=== PATIENT | male | born 1950 | race Hispanic/Latino ===

== ENCOUNTER 2018-02-02 16:24 | Emergency (ER) | payer MEDICARE ==
[2018-02-02] MEDS ORDERED: ONDANSETRON ODT 4 MG TAB ONE (16:44)
[2018-02-02 16:50] LABS: BILIRUBIN,URINE Negative (NEGATIVE); COLOR,URINE Dark Yellow (YELLOW); GLUCOSE, URINE (UA) Negative (NEGATIVE); KETONES,URINE Negative (NEGATIVE); LEUKOCYTE ESTERASE ,URINE Small (NEGATIVE); NITRATE,URINE Negative (NEGATIVE); OCCULT BLOOD,URINE Large (NEGATIVE); PROTEIN,URINE POS 2+ (NEGATIVE)
[2018-02-02 16:51] LABS: APPEARANCE,URINE SLIGHTLY CLOUDY (CLEAR)
[2018-02-02 16:51] LABS: BASOPHILS % (AUTO) 0.4 % (0.0-5.0); EOSINOPHILS % (AUTO) 1.7 % (0.0-8.0); HEMATOCRIT 37.9 % (42-54); LYMPHOCYTES % (AUTO) 22.2 % (21.0-51.0); MEAN CORPUSCULAR HEMOGLOBIN 30.8 pg (27.0-33.0); MEAN CORPUSCULAR VOLUME 90.5 fL (79-99); MONOCYTES % (AUTO) 9.5 % (3.0-13.0); NEUTROPHILS % (AUTO) 66.2 % (40.0-77.0); PLATELET COUNT (AUTO) 200 K/uL (130-400); RED BLOOD CELL COUNT(AUTO) 4.19 MIL/uL (4.50-6.20); RED CELL DISTRIBUTION WIDTH 14.1 % (11.0-15.5); WHITE BLOOD COUNT (AUTO) 8.6 K/uL (4.8-10.8)
[2018-02-02] MEDS ORDERED: DICYCLOMINE HCL 10 MG/ML 2ML AMP IM ONE (17:00)
[2018-02-02 17:01] LABS: AMPHET/METH SCREEN,URINE NEGATIVE (NEGATIVE); BARBITURATE SCREEN, URINE NEGATIVE (NEGATIVE); BENZODIAZEPINES SCREEN,URINE NEGATIVE (NEGATIVE); CANNABINOID SCREEN,URINE POSITIVE (NEGATIVE); COCAINE SCREEN,URINE POSITIVE (NEGATIVE); OPIATE SCREEN,URINE NEGATIVE (NEGATIVE); PHENCYCLIDINE SCREEN,URINE NEGATIVE (NEGATIVE)
[2018-02-02 17:02] LABS: BACTERIA,URINE Few /HPF (None Seen)
[2018-02-02 17:03] LABS: COARSE GRANULAR CASTS,URINE 0-2 /LPF (None Seen); MUCUS,URINE Few LPF (None Seen)
[2018-02-02 17:04] LABS: CREATININE 1.8 mg/dL (0.5-1.5); POTASSIUM 4.1 mmol/L (3.5-5.1)
[2018-02-02 17:08] LABS: ALBUMIN 3.5 g/dL (3.5-5.0); BILIRUBIN,TOTAL 0.9 mg/dL (0.2-1.0); TOTAL PROTEIN, SERUM 7.7 g/dL (6.0-8.3)
== END 2018-02-02 22:30 | disposition home or self-care (01) ==
LOC: EDH 16:24
DX: R10.11 Right upper quadrant pain (principal); N28.9 Disorder of kidney and ureter, unspecified; F19.10 Other psychoactive substance abuse, uncomplicated; R74.8 Abnormal levels of other serum enzymes; I10 Essential (primary) hypertension; Z90.49 Acquired absence of other specified parts of digestive tract; Z79.899 Other long term (current) drug therapy
CPT/HCPCS: 36415; 74176; 80053; 80305; 81001; 82550; 83690; 84484; 85025; 93005; 96372; 99285; J0500

== ENCOUNTER 2018-02-08 08:15 | Emergency (ER) | payer MEDICARE ==
[2018-02-08] MEDS ORDERED: KETOROLAC TROMETHAMINE 30MG/ML ONE (10:18)
== END 2018-02-08 11:47 | disposition home or self-care (01) ==
LOC: EDH 08:15
DX: M25.572 Pain in left ankle and joints of left foot (principal); I10 Essential (primary) hypertension; F14.10 Cocaine abuse, uncomplicated; Z90.49 Acquired absence of other specified parts of digestive tract
CPT/HCPCS: 73630; 96372; 99284; J1885

== ENCOUNTER 2018-02-20 14:04 | Emergency (ER) | payer MEDICARE ==
[2018-02-20 15:05] LABS: BASOPHILS % (AUTO) 0.5 % (0.0-5.0); EOSINOPHILS % (AUTO) 1.5 % (0.0-8.0); HEMATOCRIT 39.5 % (42-54); LYMPHOCYTES % (AUTO) 12.8 % (21.0-51.0); MEAN CORPUSCULAR HEMOGLOBIN 30.8 pg (27.0-33.0); MEAN CORPUSCULAR HGB CONC 34.4 g/dL (32.0-36.0); MEAN CORPUSCULAR VOLUME 89.6 fL (79-99); MONOCYTES % (AUTO) 13.9 % (3.0-13.0); NEUTROPHILS % (AUTO) 71.3 % (40.0-77.0); NUCLEATED RED BLOOD CELLS 0.1 % (0.0-0.19); PLATELET COUNT (AUTO) 206 K/uL (130-400); RED BLOOD CELL COUNT(AUTO) 4.41 MIL/uL (4.50-6.20); WHITE BLOOD COUNT (AUTO) 6.7 K/uL (4.8-10.8)
[2018-02-20 15:13] LABS: CREATININE 1.7 mg/dL (0.5-1.5); POTASSIUM 4.4 mmol/L (3.5-5.1)
[2018-02-20 15:17] LABS: ALBUMIN 3.3 g/dL (3.5-5.0); BILIRUBIN,TOTAL 0.6 mg/dL (0.2-1.0); TOTAL PROTEIN, SERUM 7.3 g/dL (6.0-8.3)
[2018-02-20 15:40] LABS: APPEARANCE,URINE Clear (CLEAR); BILIRUBIN,URINE Negative (NEGATIVE); COLOR,URINE Yellow (YELLOW); GLUCOSE, URINE (UA) Negative (NEGATIVE); KETONES,URINE Negative (NEGATIVE); LEUKOCYTE ESTERASE ,URINE Negative (NEGATIVE); NITRATE,URINE Negative (NEGATIVE); OCCULT BLOOD,URINE Moderate (NEGATIVE); PROTEIN,URINE POS 2+ (NEGATIVE)
[2018-02-20 16:10] LABS: BACTERIA,URINE Few /HPF (None Seen); WBC,URINE 0-1 /HPF (0-1)
[2018-02-20 16:11] LABS: MUCUS,URINE Rare LPF (None Seen); SQUAMOUS EPITHELIAL CELL,UR Rare /HPF (0-2)
== END 2018-02-20 17:48 | disposition home or self-care (01) ==
LOC: EDH 14:04
DX: R10.30 Lower abdominal pain, unspecified (principal); I10 Essential (primary) hypertension; Z90.49 Acquired absence of other specified parts of digestive tract
CPT/HCPCS: 36415; 74176; 80053; 81001; 82550; 83690; 84484; 85025; 93005

== ENCOUNTER → 2018-04-05 | Outpatient (CLI) | payer MEDICARE | END | disposition home or self-care (01) | LOC: RAH 09:16 | PROVIDERS: ATTEND Internal Medicine Cardiovascular Disease | DX: I08.1 Rheumatic disorders of both mitral and tricuspid valves (principal) | CPT/HCPCS: 93306 ==

== ENCOUNTER 2018-07-27 16:21 | Inpatient (IN) | payer MEDICARE ==
[~2018-07-27] VITALS: Ht 142.2 cm; Wt 79.9 kg
[2018-07-27 17:02] LABS: BASOPHILS % (AUTO) 0.5 % (0.0-5.0); EOSINOPHILS % (AUTO) 1.1 % (0.0-8.0); HEMATOCRIT 49.1 % (42-54); MEAN CORPUSCULAR HGB CONC 32.4 g/dL (32.0-36.0); MEAN CORPUSCULAR VOLUME 92.5 fL (79-99); MONOCYTES % (AUTO) 13.9 % (3.0-13.0); NEUTROPHILS % (AUTO) 61.5 % (40.0-77.0); NUCLEATED RED BLOOD CELLS 0.1 % (0.0-0.19); PLATELET COUNT (AUTO) 157 K/uL (130-400); RED BLOOD CELL COUNT(AUTO) 5.31 MIL/uL (4.50-6.20)
[2018-07-27 17:17] LABS: INR 1.53 (0.85-1.15); PARTIAL THROMBOPLASTIN TIME 26.4 SEC (26.3-35.5); PROTHROMBIN TIME 15.9 SEC (9.6-11.6)
[2018-07-27 17:37] LABS: POTASSIUM 4.2 mmol/L (3.5-5.1)
[2018-07-27 17:50] LABS: ALBUMIN 3.4 g/dL (3.5-5.0); BILIRUBIN,TOTAL 2.9 mg/dL (0.2-1.0); CREATINE KINASE MB 0.9 ng/mL (0.5-3.6); TOTAL PROTEIN, SERUM 7.4 g/dL (6.0-8.3)
[2018-07-27] MEDS ORDERED: FUROSEMIDE 10 MG/ML 4ML VIAL ONE (21:11)
[2018-07-27] MEDS ORDERED: FUROSEMIDE 10 MG/ML 2ML VIAL ONE (21:11)
[2018-07-28 00:45] VITALS: BP 130/71
[2018-07-28] MEDS ORDERED: CARV12.511 PO (01:14)
[2018-07-28] MEDS ORDERED: FURO20TA4 PO (01:14)
[2018-07-28] MEDS ORDERED: ACET-66 PO (01:14)
[2018-07-28] MEDS ORDERED: BIMA12.5OS OS (01:14)
[2018-07-28] MEDS ORDERED: SPIR25TA6 PO (01:14)
[2018-07-28] MEDS ORDERED: SACU1TAB4 PO (01:14)
[2018-07-28] MEDS ORDERED: IBUP-2353 PO (01:14)
[2018-07-28] MEDS ORDERED: ACETAMINOPHEN 325 MG TAB PO PRN (01:15)
[2018-07-28 04:00] VITALS: BP 143/92
[2018-07-28 08:00] VITALS: BP 143/90
[2018-07-28] MEDS: VALSARTAN PO SCH ×2 (09:00→21:00)
[2018-07-28] MEDS: SACUBITRIL PO SCH ×2 (09:00→21:00)
[2018-07-28 12:00] VITALS: BP 143/88
[2018-07-28] MEDS: FUROSEMIDE 10 MG/ML 4ML VIAL IVP SCH ×2 (12:00→19:21)
[2018-07-28] MEDS: PANTOPRAZOLE SODIUM 40 MG TABLET.DR PO SCH (12:01)
[2018-07-28] MEDS: CARVEDILOL 12.5 MG TABLET PO SCH ×2 (12:01→22:10)
[2018-07-28] MEDS: ENOXAPARIN SODIUM 30 MG/0.3 ML SQ SCH (12:03)
[2018-07-28] MEDS: BIMATOPROST OS SCH (12:05)
[2018-07-28] MEDS ORDERED: POTASSIUM CHLORIDE 10MEQ/100ML 100 ML IV PRN (14:15)
[2018-07-28] MEDS ORDERED: POTASSIUM CHLORIDE 10% ELIXIR 20 MEQ/15 ML UDCUP PO PRN (14:15)
[2018-07-28] MEDS ORDERED: LIDOCAINE HCL-MPF 1% 2ML VIAL IVP PRN (14:15)
[2018-07-28 19:08] VITALS: BP 114/62
[2018-07-28] MEDS: MAGNESIUM 2GM PREMIX 50ML 50 ML IV PRN (19:20)
[2018-07-28 19:32] VITALS: BP 122/65
[2018-07-29 00:32] VITALS: BP 103/49
[2018-07-29 04:33] VITALS: BP 107/61
[2018-07-29 04:40] LABS: BASOPHILS % (AUTO) 1.4 % (0.0-5.0); EOSINOPHILS % (AUTO) 1.7 % (0.0-8.0); HEMATOCRIT 47.8 % (42-54); LYMPHOCYTES % (AUTO) 20.1 % (21.0-51.0); MEAN CORPUSCULAR HEMOGLOBIN 30.4 pg (27.0-33.0); MEAN CORPUSCULAR VOLUME 92.2 fL (79-99); NEUTROPHILS % (AUTO) 66.8 % (40.0-77.0); PLATELET COUNT (AUTO) 194 K/uL (130-400); RED BLOOD CELL COUNT(AUTO) 5.18 MIL/uL (4.50-6.20); RED CELL DISTRIBUTION WIDTH 16.1 % (11.0-15.5); WHITE BLOOD COUNT (AUTO) 7.6 K/uL (4.8-10.8)
[2018-07-29 05:28] LABS: POTASSIUM 2.9 mmol/L (3.5-5.1)
[2018-07-29 05:41] LABS: B-TYPE NATRIURETIC PEPTIDE 855 pg/mL (0-100)
[2018-07-29] MEDS: MAGNESIUM 2GM PREMIX 50ML 50 ML IV PRN (06:12)
[2018-07-29] MEDS: POTASSIUM CHLORIDE 20 MEQ ERTAB PO PRN ×4 (06:15→23:12)
[2018-07-29 08:00] VITALS: BP 118/58
[2018-07-29] MEDS: SACUBITRIL PO SCH ×2 (09:00→20:47)
[2018-07-29] MEDS: VALSARTAN PO SCH ×2 (09:00→20:47)
[2018-07-29] MEDS: FUROSEMIDE 10 MG/ML 4ML VIAL IVP SCH ×2 (09:17→20:45)
[2018-07-29] MEDS: PANTOPRAZOLE SODIUM 40 MG TABLET.DR PO SCH (09:18)
[2018-07-29] MEDS: ENOXAPARIN SODIUM 30 MG/0.3 ML SQ SCH (09:19)
[2018-07-29 12:00] VITALS: BP 132/72
[2018-07-29] MEDS: CARVEDILOL 12.5 MG TABLET PO SCH ×2 (13:57→23:13)
[2018-07-29 16:00] VITALS: BP 105/50
[2018-07-29 20:00] VITALS: BP 96/60
[2018-07-29] MEDS: BIMATOPROST OS SCH (20:47)
[2018-07-30] VITALS: BP 100/64
[2018-07-30] MEDS: POTASSIUM CHLORIDE 20 MEQ ERTAB PO PRN ×3 (01:19→08:47)
[2018-07-30 04:00] VITALS: BP 98/59
[2018-07-30 05:32] LABS: BASOPHILS % (AUTO) 0.8 % (0.0-5.0); HEMATOCRIT 48.1 % (42-54); LYMPHOCYTES % (AUTO) 28.1 % (21.0-51.0); MEAN CORPUSCULAR HEMOGLOBIN 29.8 pg (27.0-33.0); MEAN CORPUSCULAR HGB CONC 32.7 g/dL (32.0-36.0); MEAN CORPUSCULAR VOLUME 91.2 fL (79-99); MONOCYTES % (AUTO) 11.6 % (3.0-13.0); NEUTROPHILS % (AUTO) 57.5 % (40.0-77.0); NUCLEATED RED BLOOD CELLS 0.1 % (0.0-0.19); PLATELET COUNT (AUTO) 170 K/uL (130-400); RED BLOOD CELL COUNT(AUTO) 5.28 MIL/uL (4.50-6.20); RED CELL DISTRIBUTION WIDTH 15.8 % (11.0-15.5); WHITE BLOOD COUNT (AUTO) 6.7 K/uL (4.8-10.8)
[2018-07-30 05:55] LABS: ALBUMIN 2.7 g/dL (3.5-5.0); BILIRUBIN,TOTAL 1.3 mg/dL (0.2-1.0); CREATININE 2.1 mg/dL (0.5-1.5); MAGNESIUM 1.7 mg/dL (1.80-2.40); POTASSIUM 3.3 mmol/L (3.5-5.1); TOTAL PROTEIN, SERUM 6.3 g/dL (6.0-8.3)
[2018-07-30 07:00] VITALS: BP 120/40
[2018-07-30] MEDS ORDERED: MAGNESIUM 2GM PREMIX 50ML 50 ML IV SCH (07:45)
[2018-07-30] MEDS: FUROSEMIDE 10 MG/ML 4ML VIAL IVP SCH (08:47)
[2018-07-30] MEDS: PANTOPRAZOLE SODIUM 40 MG TABLET.DR PO SCH (08:48)
[2018-07-30] MEDS: VALSARTAN PO SCH (09:00)
[2018-07-30] MEDS: SACUBITRIL PO SCH (09:00)
[2018-07-30] MEDS ORDERED: CARVEDILOL 6.25 MG TABLET PO SCH (09:00)
[2018-07-30] MEDS: ENOXAPARIN SODIUM 30 MG/0.3 ML SQ SCH (09:00)
[2018-07-30 11:00] VITALS: BP 123/70
[2018-07-30] MEDS ORDERED: FURO-152 PO (15:27)
[2018-07-30] MEDS ORDERED: CARV6.2579 PO (15:27)
[2018-07-30 16:00] VITALS: BP 98/58
== END 2018-07-30 16:51 | disposition home or self-care (01) | DRG 291 ==
LOC: EDH 16:21 → EDHIP 21:00 → 3DH 07-28 00:54
PROVIDERS: ADMIT Internal Medicine; ATTEND Internal Medicine
DX: I13.0 Hypertensive heart and chronic kidney disease with heart failure and stage 1 through stage 4 chronic kidney disease, or unspecified chronic kidney disease (principal); I50.23 Acute on chronic systolic (congestive) heart failure; N17.9 Acute kidney failure, unspecified; I42.0 Dilated cardiomyopathy; N18.9 Chronic kidney disease, unspecified; R14.0 Abdominal distension (gaseous); E78.5 Hyperlipidemia, unspecified; E83.42 Hypomagnesemia; Z82.49 Family history of ischemic heart disease and other diseases of the circulatory system; Z90.49 Acquired absence of other specified parts of digestive tract; Z28.21 Immunization not carried out because of patient refusal
CPT/HCPCS: 36415; 71046; 80048; 80053; 82550; 82553; 82948; 83735; 83880; 84132; 84484; 85025; 85610; 85730; 93005; J1650; J1940; J3475

== ENCOUNTER → 2018-11-01 | Outpatient (CLI) | payer MEDICARE ==
[~2018-11-01] MED LIST: ACET-66 PO; BIMA12.5OS OS; CARV6.2579 PO; FURO-152 PO; IBUP-2353 PO; SACU1TAB4 PO; SPIR25TA6 PO
== END | disposition home or self-care (01) ==
LOC: SHCH 07:36
PROVIDERS: ATTEND Internal Medicine Cardiovascular Disease
DX: N28.1 Cyst of kidney, acquired (principal); I13.0 Hypertensive heart and chronic kidney disease with heart failure and stage 1 through stage 4 chronic kidney disease, or unspecified chronic kidney disease; N18.3 Chronic kidney disease, stage 3 (moderate); I50.9 Heart failure, unspecified
CPT/HCPCS: 93975

== ENCOUNTER 2019-01-22 15:38 | Emergency (ER) | payer MEDICARE ==
[2019-01-22 16:29] LABS: APPEARANCE,URINE Clear (CLEAR); BILIRUBIN,URINE Negative (NEGATIVE); COLOR,URINE Yellow (YELLOW); GLUCOSE, URINE (UA) Negative (NEGATIVE); KETONES,URINE Negative (NEGATIVE); LEUKOCYTE ESTERASE ,URINE Negative (NEGATIVE); NITRATE,URINE Negative (NEGATIVE); OCCULT BLOOD,URINE Trace (NEGATIVE); PROTEIN,URINE Negative (NEGATIVE); UROBILINOGEN,URINE 0.2 mg/dL (0.2-1.0)
[2019-01-22 16:37] LABS: AMPHET/METH SCREEN,URINE NEGATIVE (NEGATIVE); BARBITURATE SCREEN, URINE NEGATIVE (NEGATIVE); BENZODIAZEPINES SCREEN,URINE NEGATIVE (NEGATIVE); CANNABINOID SCREEN,URINE NEGATIVE (NEGATIVE); COCAINE SCREEN,URINE POSITIVE (NEGATIVE); OPIATE SCREEN,URINE NEGATIVE (NEGATIVE); PHENCYCLIDINE SCREEN,URINE NEGATIVE (NEGATIVE)
[2019-01-22 16:49] LABS: BASOPHILS % (AUTO) 1.1 % (0.0-5.0); EOSINOPHILS % (AUTO) 3.1 % (0.0-8.0); HEMATOCRIT 41.1 % (42-54); LYMPHOCYTES % (AUTO) 24.7 % (21.0-51.0); MEAN CORPUSCULAR HEMOGLOBIN 31.6 pg (27.0-33.0); MEAN CORPUSCULAR HGB CONC 34.1 g/dL (32.0-36.0); MEAN CORPUSCULAR VOLUME 92.7 fL (79-99); NEUTROPHILS % (AUTO) 63.1 % (40.0-77.0); NUCLEATED RED BLOOD CELLS 0.1 % (0.0-0.19); PLATELET COUNT (AUTO) 235 K/uL (130-400); RED BLOOD CELL COUNT(AUTO) 4.44 MIL/uL (4.50-6.20); RED CELL DISTRIBUTION WIDTH 12.9 % (11.0-15.5)
[2019-01-22 17:04] LABS: BACTERIA,URINE Rare /HPF (None Seen); RBC,URINE None Seen /HPF (0-1); SQUAMOUS EPITHELIAL CELL,UR None Seen /HPF (0-2); WBC,URINE 0-1 /HPF (0-1)
[2019-01-22 17:04] LABS: CREATININE 1.4 mg/dL (0.5-1.5); POTASSIUM 4.7 mmol/L (3.5-5.1)
[2019-01-22 17:07] LABS: INR 0.95 (0.85-1.15); PARTIAL THROMBOPLASTIN TIME 23.7 SEC (26.3-35.5)
[2019-01-22 17:12] LABS: ALBUMIN 3.7 g/dL (3.5-5.0); BILIRUBIN,TOTAL 0.3 mg/dL (0.2-1.0); TOTAL PROTEIN, SERUM 7.5 g/dL (6.0-8.3)
[2019-01-22 18:16] LABS: B-TYPE NATRIURETIC PEPTIDE 113 pg/mL (0-100)
[2019-01-22] MEDS ORDERED: HYOSCYAMINE SULFATE 0.125 MG TAB.SUBL SL ONE (18:47)
[2019-01-22] MEDS ORDERED: SIMETHICONE 80 MG TAB.CHEW ONE (18:47)
== END 2019-01-22 18:55 | disposition home or self-care (01) ==
LOC: EDH 15:38
DX: R14.0 Abdominal distension (gaseous) (principal); F14.10 Cocaine abuse, uncomplicated; I10 Essential (primary) hypertension; M54.5 Low back pain; R06.02 Shortness of breath; Z90.49 Acquired absence of other specified parts of digestive tract
CPT/HCPCS: 36415; 71045; 74176; 80053; 80305; 81001; 82150; 82550; 83690; 83880; 84484; 85025; 85610; 85730; 93005

== ENCOUNTER 2019-06-01 13:31 | Emergency (ER) | payer MEDICARE ==
[2019-06-01] MEDS ORDERED: FUROSEMIDE 10 MG/ML 4ML VIAL ONE (14:42)
[2019-06-01 15:01] LABS: CREATININE 1.3 mg/dL (0.5-1.5); POTASSIUM 3.2 mmol/L (3.5-5.1)
== END 2019-06-01 15:50 | disposition home or self-care (01) ==
LOC: EDH 13:31
DX: E87.70 Fluid overload, unspecified (principal); I10 Essential (primary) hypertension; E11.9 Type 2 diabetes mellitus without complications; E78.00 Pure hypercholesterolemia, unspecified; F14.10 Cocaine abuse, uncomplicated
CPT/HCPCS: 36415; 80048; 96374; 99284; J1940

== ENCOUNTER 2019-08-10 12:03 | Inpatient (IN) | payer MEDICARE ==
[~2019-08-10] VITALS: Ht 160 cm; Wt 93.9 kg
[~2019-08-10 12:03] MED LIST changes: +BIMA12.5OS OD; -BIMA12.5OS OS; -IBUP-2353 PO; +IBUP-2784 PO
[2019-08-10 12:45] LABS: BASOPHILS % (AUTO) 0.4 % (0.0-5.0); EOSINOPHILS % (AUTO) 3.2 % (0.0-8.0); HEMATOCRIT 36.7 % (42-54); LYMPHOCYTES % (AUTO) 11.2 % (21.0-51.0); MEAN CORPUSCULAR HEMOGLOBIN 31.1 pg (27.0-33.0); MEAN CORPUSCULAR HGB CONC 33.7 g/dL (32.0-36.0); MEAN CORPUSCULAR VOLUME 92.4 fL (79-99); MONOCYTES % (AUTO) 9.1 % (3.0-13.0); NEUTROPHILS % (AUTO) 76.1 % (40.0-77.0); PLATELET COUNT (AUTO) 162 K/uL (130-400); RED BLOOD CELL COUNT(AUTO) 3.97 MIL/uL (4.50-6.20); RED CELL DISTRIBUTION WIDTH 14.4 % (11.0-15.5); WHITE BLOOD COUNT (AUTO) 8.1 K/uL (4.8-10.8)
[2019-08-10] MEDS ORDERED: IPRATROPIUM/ALBUTEROL SULFATE 3 ML SOLUTION IH ONE (12:46)
[2019-08-10 12:52] LABS: CREATININE 1.6 mg/dL (0.5-1.5); POTASSIUM 3.4 mmol/L (3.5-5.1)
[2019-08-10 12:55] LABS: INR 1.25 (0.85-1.15); PARTIAL THROMBOPLASTIN TIME 25.2 SEC (26.3-35.5)
[2019-08-10 12:58] LABS: ALBUMIN 3.2 g/dL (3.5-5.0); BILIRUBIN,DIRECT 0.2 mg/dL (0.0-0.3); BILIRUBIN,TOTAL 0.8 mg/dL (0.2-1.0); TOTAL PROTEIN, SERUM 6.8 g/dL (6.0-8.3)
[2019-08-10 13:33] LABS: B-TYPE NATRIURETIC PEPTIDE 1150 pg/mL (0-100)
[2019-08-10] MEDS ORDERED: FUROSEMIDE 10 MG/ML 4ML VIAL ONE (13:38)
[2019-08-10] MEDS ORDERED: FUROSEMIDE 10 MG/ML 2ML VIAL IV SCH (14:15)
[2019-08-10] MEDS ORDERED: HYDRALAZINE HCL 20 MG/ML VIAL IV PRN (14:15)
[2019-08-10] MEDS ORDERED: ONDANSETRON HCL 4 MG/2 ML VIAL IV PRN (14:15)
[2019-08-10] MEDS ORDERED: ACETAMINOPHEN 325 MG TAB PO PRN ×2 (14:15)
[2019-08-10 15:25] VITALS: BP 125/69
[2019-08-10] MEDS ORDERED: DEXTROSE 50%-WATER 50 ML DISP.SYRIN IV PRN ×2 (15:45→17:45)
[2019-08-10] MEDS ORDERED: GLUCAGON 1MG KIT 1 MG ML IM PRN ×2 (15:45→17:45)
[2019-08-10] MEDS: INSULIN HUMULIN R 100 UNIT/ML 3ML SQ SCH ×2 (16:30→21:00)
[2019-08-10] MEDS: IPRATROPIUM/ALBUTEROL SULFATE 3 ML SOLUTION IH SCH (19:19)
[2019-08-10] MEDS ORDERED: POTASSIUM CHLORIDE 10% ELIXIR 20 MEQ/15 ML UDCUP PO SCH (19:20)
[2019-08-10 19:30] VITALS: BP 103/69
[2019-08-10] MEDS ORDERED: POTASSIUM CHLORIDE 20 MEQ ERTAB PO ONE (20:35)
[2019-08-10] MEDS: ASPIRIN 81 MG EC TAB PO SCH (20:38)
[2019-08-10] MEDS: METHYLPREDNISOLONE SOD SUCC 40MG/ML 1ML IVP SCH ×2 (20:38→21:00)
[2019-08-10] MEDS ORDERED: INSULIN HUMULIN R 100 UNIT/ML 3ML SQ SCH (21:00)
[2019-08-10] MEDS ORDERED: FURO20TA4 PO (21:42)
[2019-08-10] MEDS ORDERED: CARV25TA PO (21:42)
[2019-08-10] MEDS ORDERED: TRAM50TA4 PO (21:42)
[2019-08-10] MEDS ORDERED: SPIR25TA6 PO (21:42)
[2019-08-10 23:00] VITALS: BP 96/57
[2019-08-10] MEDS: LEVOFLOXACIN 250 MG/D5W 50ML 50 ML IV SCH (23:46)
[2019-08-11] MEDS: IPRATROPIUM/ALBUTEROL SULFATE 3 ML SOLUTION IH SCH ×2 (00:06→06:47)
[2019-08-11 03:30] VITALS: BP 92/59
[2019-08-11 04:33] LABS: BASOPHILS % (AUTO) 0.1 % (0.0-5.0); EOSINOPHILS % (AUTO) 0.4 % (0.0-8.0); LYMPHOCYTES % (AUTO) 9.6 % (21.0-51.0); MEAN CORPUSCULAR HEMOGLOBIN 30.8 pg (27.0-33.0); MEAN CORPUSCULAR HGB CONC 33.8 g/dL (32.0-36.0); MEAN CORPUSCULAR VOLUME 91.4 fL (79-99); MONOCYTES % (AUTO) 2.5 % (3.0-13.0); NEUTROPHILS % (AUTO) 87.4 % (40.0-77.0); PLATELET COUNT (AUTO) 183 K/uL (130-400); RED BLOOD CELL COUNT(AUTO) 4.27 MIL/uL (4.50-6.20); RED CELL DISTRIBUTION WIDTH 14.2 % (11.0-15.5); WHITE BLOOD COUNT (AUTO) 6.6 K/uL (4.8-10.8)
[2019-08-11 04:42] LABS: BILIRUBIN,TOTAL 0.8 mg/dL (0.2-1.0); CREATININE 1.6 mg/dL (0.5-1.5); POTASSIUM 3.9 mmol/L (3.5-5.1); TOTAL PROTEIN, SERUM 6.7 g/dL (6.0-8.3)
[2019-08-11 04:59] LABS: B-TYPE NATRIURETIC PEPTIDE 621 pg/mL (0-100)
[2019-08-11] MEDS: FUROSEMIDE 10 MG/ML 2ML VIAL IV SCH ×2 (05:03→17:09)
[2019-08-11] MEDS: INSULIN HUMULIN R 100 UNIT/ML 3ML SQ SCH ×4 (06:15→21:00)
[2019-08-11 07:55] VITALS: BP 116/74
[2019-08-11] MEDS: METHYLPREDNISOLONE SOD SUCC 40MG/ML 1ML IVP SCH ×2 (09:14→21:06)
[2019-08-11] MEDS: FAMOTIDINE 20MG TAB 20 MG TAB PO SCH (09:14)
[2019-08-11] MEDS: ASPIRIN 81 MG EC TAB PO SCH (09:14)
[2019-08-11] MEDS: ENOXAPARIN SODIUM 30 MG/0.3 ML SQ SCH (09:15)
[2019-08-11] MEDS ORDERED: IPRATROPIUM/ALBUTEROL SULFATE 3 ML SOLUTION IH PRN (10:15)
[2019-08-11 10:44] LABS: HEMOGLOBIN A1C 6.2 % (4.0-6.0)
[2019-08-11 11:40] VITALS: BP 103/69
--- NOTE | 2019-08-11 13:28 | NUR ---
CHF diet education: Printed materials provided and reviewed with pt on heart failure diet therapy. Pt did not have any nutritional questions, however consistently asked when he would be d/c home. Pt encouraged to reduce sodium intake and monitor fluid intake however may benefit from diet education reenforcement. Addendum: 08/11/19 at [address] Amended: Links added.
--- NOTE | 2019-08-11 13:51 | NUR ---
Nutrition intervention: Nutrition consult for CHF diet education. Printed materials provided and reviewed. Pt with no nutritional questions or concerns. Pt questioning when he would be discharged home. Recommendations: Modify diet therapy with CCD 75gm for appropriate diet placement. Monitor PO intake and tolerance. Consult RD if additional nutrition concerns arise. Addendum: 08/11/19 at [address] Amended: Links added.
[2019-08-11 16:00] VITALS: BP 110/61
[2019-08-11] MEDS: LEVOFLOXACIN 250 MG/D5W 50ML 50 ML IV SCH (17:09)
--- NOTE | 2019-08-11 19:09 | NUR ---
cm note met with patient and states resides wes alone uses walker and canes for ambulation, no other dme. has provider 3-4hrs daily. dcplan is back to home. states no dc needs. Addendum: 08/11/19 at 1910 by CALLIE JOHNSON CM Amended: Links added.
[2019-08-11 19:32] VITALS: BP 131/61
[2019-08-11] MEDS: CARVEDILOL 25 MG TABLET PO SCH (21:06)
[2019-08-11 23:30] VITALS: BP 106/54
[2019-08-12 03:30] VITALS: BP 111/57
[2019-08-12 04:49] LABS: HEMATOCRIT 40.9 % (42-54); MEAN CORPUSCULAR HEMOGLOBIN 31.2 pg (27.0-33.0); MEAN CORPUSCULAR HGB CONC 33.8 g/dL (32.0-36.0); MEAN CORPUSCULAR VOLUME 92.2 fL (79-99); PLATELET COUNT (AUTO) 198 K/uL (130-400); RED BLOOD CELL COUNT(AUTO) 4.43 MIL/uL (4.50-6.20); RED CELL DISTRIBUTION WIDTH 14.6 % (11.0-15.5); WHITE BLOOD COUNT (AUTO) 11.9 K/uL (4.8-10.8)
[2019-08-12 04:56] LABS: LYMPHOCYTES % (MANUAL) 7 % (22-44); MAN.DIFF COMMENT-IMPRESSION MANUAL DIFFERENTIAL; MONOCYTES % (MANUAL) 4 % (2-9); SEGMENTED NEUTROPHILS % 89 % (40-70)
[2019-08-12 04:57] LABS: PLATELET MORPHOLOGY COMMENT ADEQUATE
[2019-08-12 04:58] LABS: CREATININE 1.5 mg/dL (0.5-1.5); POTASSIUM 3.6 mmol/L (3.5-5.1)
--- NOTE | 2019-08-12 05:00 | NUR ---
NOTE PATIENT WALKING IN HALLWAY. TOLERATING WELL. DENIES ANY SOB OR DISCOMFORTS.
[2019-08-12] MEDS: INSULIN HUMULIN R 100 UNIT/ML 3ML SQ SCH ×2 (05:17→11:30)
[2019-08-12] MEDS: FUROSEMIDE 10 MG/ML 2ML VIAL IV SCH (05:29)
[2019-08-12 08:00] VITALS: BP 104/53
[2019-08-12] MEDS ORDERED: SPIRONOLACTONE 25 MG TAB PO SCH (09:00)
[2019-08-12] MEDS ORDERED: Sacubitril/Valsartan (Entresto 97 mg-103 mg Tablet) PO SCH (09:00)
[2019-08-12] MEDS: ENOXAPARIN SODIUM 30 MG/0.3 ML SQ SCH (09:00)
[2019-08-12] MEDS ORDERED: PREDNISONE 20 MG TABLET PO SCH (09:00)
[2019-08-12] MEDS ORDERED: FURO20TA6 PO (10:31)
[2019-08-12] MEDS: ASPIRIN 81 MG EC TAB PO SCH (10:35)
[2019-08-12] MEDS: FAMOTIDINE 20MG TAB 20 MG TAB PO SCH (10:35)
[2019-08-12] MEDS: CARVEDILOL 25 MG TABLET PO SCH (10:36)
[2019-08-12 11:00] VITALS: BP 106/55
[2019-08-12] MEDS ORDERED: PRED20B PO (14:11)
[2019-08-12] MEDS ORDERED: Bimatoprost (Lumigan 0.01% Ophth Soln) 1 DROP OD SCH (21:00)
== END 2019-08-12 15:18 | disposition home or self-care (01) | DRG 682 ==
LOC: EDH 12:03 → EDHIP 14:13 → OBSVTOIN 14:13 → 4BH 15:14
PROVIDERS: ADMIT Hospitalist; ATTEND Hospitalist
DX: N17.9 Acute kidney failure, unspecified (principal); I50.43 Acute on chronic combined systolic (congestive) and diastolic (congestive) heart failure; I13.0 Hypertensive heart and chronic kidney disease with heart failure and stage 1 through stage 4 chronic kidney disease, or unspecified chronic kidney disease; I42.0 Dilated cardiomyopathy; J20.9 Acute bronchitis, unspecified; E11.22 Type 2 diabetes mellitus with diabetic chronic kidney disease; E66.9 Obesity, unspecified; Z68.36 Body mass index [BMI] 36.0-36.9, adult; E78.5 Hyperlipidemia, unspecified; F14.10 Cocaine abuse, uncomplicated; E78.00 Pure hypercholesterolemia, unspecified; I34.0 Nonrheumatic mitral (valve) insufficiency; I49.1 Atrial premature depolarization; N18.3 Chronic kidney disease, stage 3 (moderate); Z91.14 Patient's other noncompliance with medication regimen
CPT/HCPCS: 36415; 71046; 80048; 80053; 80076; 82550; 82948; 83036; 83690; 83880; 84484; 85025; 85610; 85730; 87486; 87581; 87633; 87798; 93005; 93306; 94640; 94664; G0378; J1650; J1940; J1956; J2920

== ENCOUNTER 2020-06-12 07:31 | Inpatient (IN) | payer MEDICARE ==
[~2020-06-12 07:31] MED LIST changes: -ACET-66 PO; +CARV25TA PO; -CARV6.2579 PO; -FURO-152 PO; +FURO20TA6 PO; -IBUP-2784 PO; +PRED20B PO; +TRAM50TA4 PO
[2020-06-12 08:02] LABS: BASOPHILS % (AUTO) 0.5 % (0.0-5.0); EOSINOPHILS % (AUTO) 1.5 % (0.0-8.0); HEMATOCRIT 41.4 % (42-54); LYMPHOCYTES % (AUTO) 21.8 % (21.0-51.0); MEAN CORPUSCULAR HEMOGLOBIN 29.7 pg (27.0-33.0); MEAN CORPUSCULAR HGB CONC 31.4 g/dL (32.0-36.0); MEAN CORPUSCULAR VOLUME 94.7 fL (79-99); MONOCYTES % (AUTO) 10.8 % (3.0-13.0); NEUTROPHILS % (AUTO) 65.2 % (40.0-77.0); PLATELET COUNT (AUTO) 205 K/uL (130-400); RED BLOOD CELL COUNT(AUTO) 4.37 MIL/uL (4.50-6.20); RED CELL DISTRIBUTION WIDTH 14.2 % (11.0-15.5)
[2020-06-12 08:13] LABS: CARBON DIOXIDE 24 mmol/L (21-32); CHLORIDE 104 mmol/L (101-111); CREATININE 1.8 mg/dL (0.5-1.5); GLOMERULAR FILTR. RATE CALC 40 mL/min (>60); GLUCOSE,RANDOM 121 mg/dL (70-105); POTASSIUM 3.1 mmol/L (3.5-5.1); SODIUM SERUM 140 mmol/L (136-145); UREA NITROGEN, BLOOD 24 mg/dL (7-18)
[2020-06-12 08:18] LABS: INR 1.37 (0.85-1.15); PARTIAL THROMBOPLASTIN TIME 25.8 SEC (26.3-35.5); PROTHROMBIN TIME 14.6 SEC (9.6-11.6)
[2020-06-12 08:35] LABS: ALANINE AMINOTRANSFERASE 42 U/L (12-78); ALBUMIN 3.7 g/dL (3.5-5.0); ASPARTATE AMINOTRANSFERASE 39 U/L (10-37); BILIRUBIN,TOTAL 0.9 mg/dL (0.2-1.0); CREATINE KINASE, TOTAL 111 U/L (21-232); LIPASE 194 U/L (114-286); MYOGLOBIN 62 ng/mL (10-92); TOTAL PROTEIN, SERUM 7.8 g/dL (6.0-8.3); TROPONIN I < 0.04 ng/mL (0.00-0.06)
[2020-06-12] MEDS ORDERED: FUROSEMIDE 10 MG/ML 4ML VIAL ONE (09:43)
[2020-06-12] MEDS ORDERED: POTASSIUM CHLORIDE 20 MEQ ERTAB PO ONE ×2 (10:51→15:15)
[2020-06-12 11:25] LABS: APPEARANCE,URINE Clear (CLEAR); BILIRUBIN,URINE Negative (NEGATIVE); COLOR,URINE Yellow (YELLOW); GLUCOSE, URINE (UA) Negative (NEGATIVE); KETONES,URINE Negative (NEGATIVE); LEUKOCYTE ESTERASE ,URINE Negative (NEGATIVE); NITRATE,URINE Negative (NEGATIVE); OCCULT BLOOD,URINE Trace (NEGATIVE); PROTEIN,URINE POS 1+ mg/dL (NEGATIVE); UROBILINOGEN,URINE 0.2 mg/dL (0.2-1.0)
[2020-06-12 11:32] LABS: AMPHET/METH SCREEN,URINE NEGATIVE (NEGATIVE); BARBITURATE SCREEN, URINE NEGATIVE (NEGATIVE); BENZODIAZEPINES SCREEN,URINE NEGATIVE (NEGATIVE); CANNABINOID SCREEN,URINE NEGATIVE (NEGATIVE); COCAINE SCREEN,URINE POSITIVE (NEGATIVE); OPIATE SCREEN,URINE NEGATIVE (NEGATIVE); PHENCYCLIDINE SCREEN,URINE NEGATIVE (NEGATIVE)
[2020-06-12 11:41] LABS: BACTERIA,URINE Rare /HPF (None Seen); SQUAMOUS EPITHELIAL CELL,UR Rare /HPF (0-2); WBC,URINE 0-1 /HPF (0-1)
[2020-06-12] MEDS ORDERED: ONDANSETRON HCL 4 MG/2 ML VIAL IVP PRN (15:00)
[2020-06-12] MEDS ORDERED: ACETAMINOPHEN 325 MG TAB PO PRN (15:00)
[2020-06-12] MEDS: FUROSEMIDE 10 MG/ML 2ML VIAL IV SCH (15:00)
[2020-06-12 22:30] VITALS: BP 146/86
[2020-06-13] VITALS (7 sets, daily range): BP systolic 109–152; BP diastolic 61–98
[2020-06-13] MEDS: FUROSEMIDE 10 MG/ML 2ML VIAL IV SCH ×2 (03:36→13:14)
[2020-06-13 05:49] LABS: BASOPHILS % (AUTO) 0.7 % (0.0-5.0); EOSINOPHILS % (AUTO) 1.6 % (0.0-8.0); HEMATOCRIT 39.3 % (42-54); MEAN CORPUSCULAR HEMOGLOBIN 30.3 pg (27.0-33.0); MEAN CORPUSCULAR HGB CONC 31.8 g/dL (32.0-36.0); MEAN CORPUSCULAR VOLUME 95.2 fL (79-99); MONOCYTES % (AUTO) 10.8 % (3.0-13.0); NEUTROPHILS % (AUTO) 63.8 % (40.0-77.0); PLATELET COUNT (AUTO) 192 K/uL (130-400); RED BLOOD CELL COUNT(AUTO) 4.13 MIL/uL (4.50-6.20); RED CELL DISTRIBUTION WIDTH 14.2 % (11.0-15.5); WHITE BLOOD COUNT (AUTO) 7.6 K/uL (4.8-10.8)
[2020-06-13 06:10] LABS: B-TYPE NATRIURETIC PEPTIDE 2150 pg/mL (0-100)
[2020-06-13 06:18] LABS: ALBUMIN 3.4 g/dL (3.5-5.0); BILIRUBIN,TOTAL 1.9 mg/dL (0.2-1.0); POTASSIUM 4.2 mmol/L (3.5-5.1); TOTAL PROTEIN, SERUM 7.1 g/dL (6.0-8.3)
[2020-06-13] MEDS: FAMOTIDINE 20MG TAB 20 MG TAB PO SCH (09:47)
[2020-06-13] MEDS: ENOXAPARIN SODIUM 30 MG/0.3 ML SQ SCH (10:03)
[2020-06-13] MEDS: SACUBITRIL PO SCH ×2 (11:33→20:23)
[2020-06-13] MEDS: VALSARTAN PO SCH ×2 (11:33→20:23)
[2020-06-13] MEDS: CARVEDILOL 25 MG TABLET PO SCH ×2 (13:13→20:22)
[2020-06-13] MEDS: SPIRONOLACTONE 25 MG TAB PO SCH (13:14)
--- NOTE | 2020-06-13 18:26 | NUR ---
cm note pt resides at home alone, independent, with ambulation. no dme. has provider 33hrs/wk adls assist, family transports as needed. no dc needs. dc plan is back to home. Addendum: 06/13/20 at 1830 by CALLIE JOHNSON CM Amended: Links added.
--- NOTE | 2020-06-13 19:05 | NUR ---
COVID RESULTS NEGATIVE;PAGED DR. [place] STATES MAY TRANSFER TO MED/TELE, CONSULT CARDIO WREATH AND [employer] FOR EF OF 15%.
--- NOTE | 2020-06-13 19:06 | NUR ---
DR. DIAS PAGED;PENDING CALL BACK RE; EF OF 15%.
--- NOTE | 2020-06-13 21:57 | NUR ---
Transferred to Room 327 Patient is Covid negative and is being transferred off the floor to room 327. Dr. Malvin Galvez returned a page and was made aware of patient's EF of 15% and that he needed a consult. Dr. Malvin Pemberton reported that patient was Covid negative and will be transferring off of the unit to another floor. He reported that he will see patient tomorrow morning when he is moved. Patient is leaving the unit via w/c with charge nurse.
--- NOTE | 2020-06-13 22:10 | NUR ---
patient arrived to room 327. patient alert and oriented x 3. he went to the restroom and has shortness of breath on exertion, but oxygen saturation is 98% on room air. 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 i oriented patient to the room, restroom, call light, television, etc. patient verbalizes understanding. he is aware of the medications we are giving him (lovenox, lasix) and that doctor mild will see him tomorrow. no issues.
[2020-06-14 01:09] VITALS: BP 99/63
[2020-06-14] MEDS: FUROSEMIDE 10 MG/ML 2ML VIAL IV SCH ×3 (01:26→18:24)
[2020-06-14 04:24] LABS: BASOPHILS % (AUTO) 0.5 % (0.0-5.0); EOSINOPHILS % (AUTO) 2.9 % (0.0-8.0); LYMPHOCYTES % (AUTO) 19.8 % (21.0-51.0); MEAN CORPUSCULAR HEMOGLOBIN 29.9 pg (27.0-33.0); MEAN CORPUSCULAR HGB CONC 32.6 g/dL (32.0-36.0); MEAN CORPUSCULAR VOLUME 91.9 fL (79-99); MONOCYTES % (AUTO) 9.7 % (3.0-13.0); NEUTROPHILS % (AUTO) 66.8 % (40.0-77.0); PLATELET COUNT (AUTO) 176 K/uL (130-400); RED BLOOD CELL COUNT(AUTO) 3.81 MIL/uL (4.50-6.20); RED CELL DISTRIBUTION WIDTH 13.7 % (11.0-15.5); WHITE BLOOD COUNT (AUTO) 6.3 K/uL (4.8-10.8)
[2020-06-14 04:31] VITALS: BP 103/67
[2020-06-14 04:33] LABS: CREATININE 2.1 mg/dL (0.5-1.5); POTASSIUM 3.2 mmol/L (3.5-5.1)
[2020-06-14 04:42] LABS: B-TYPE NATRIURETIC PEPTIDE 1260 pg/mL (0-100)
[2020-06-14 07:40] VITALS: BP_SYST 113; BP_SYST 131; BP_DIAS 55
[2020-06-14] MEDS: SACUBITRIL PO SCH ×2 (09:00→20:35)
[2020-06-14] MEDS: VALSARTAN PO SCH ×2 (09:00→20:35)
[2020-06-14] MEDS: FAMOTIDINE 20MG TAB 20 MG TAB PO SCH (09:39)
[2020-06-14] MEDS: CARVEDILOL 25 MG TABLET PO SCH ×2 (09:40→20:35)
[2020-06-14] MEDS: SPIRONOLACTONE 25 MG TAB PO SCH (09:41)
[2020-06-14] MEDS: ENOXAPARIN SODIUM 30 MG/0.3 ML SQ SCH (09:41)
[2020-06-14] MEDS ORDERED: FUROSEMIDE 10 MG/ML 2ML VIAL IV SCH ×2 (10:45→16:15)
[2020-06-14 11:09] VITALS: BP 104/49
[2020-06-14 15:56] VITALS: BP 93/46
[2020-06-14] MEDS ORDERED: POTASSIUM CHLORIDE 10 MEQ/TAB.SA PO ONE (18:34)
[2020-06-14] MEDS: POTASSIUM CHLORIDE 10 MEQ/TAB.SA PO SCH (20:33)
[2020-06-14 21:37] VITALS: BP 101/58
[2020-06-15] VITALS (7 sets, daily range): BP systolic 96–129; BP diastolic 40–71
[2020-06-15] MEDS ORDERED: FUROSEMIDE 10 MG/ML 4ML VIAL ONE (04:03)
[2020-06-15] MEDS: FUROSEMIDE 10 MG/ML 2ML VIAL IV SCH ×2 (06:07→17:22)
[2020-06-15 06:45] LABS: BASOPHILS % (AUTO) 0.5 % (0.0-5.0); EOSINOPHILS % (AUTO) 2.7 % (0.0-8.0); HEMATOCRIT 39.4 % (42-54); LYMPHOCYTES % (AUTO) 20.5 % (21.0-51.0); MEAN CORPUSCULAR HEMOGLOBIN 29.8 pg (27.0-33.0); MEAN CORPUSCULAR HGB CONC 32.2 g/dL (32.0-36.0); MEAN CORPUSCULAR VOLUME 92.5 fL (79-99); PLATELET COUNT (AUTO) 197 K/uL (130-400); RED BLOOD CELL COUNT(AUTO) 4.26 MIL/uL (4.50-6.20); RED CELL DISTRIBUTION WIDTH 14.1 % (11.0-15.5); WHITE BLOOD COUNT (AUTO) 7.5 K/uL (4.8-10.8)
[2020-06-15 07:49] LABS: B-TYPE NATRIURETIC PEPTIDE 649 pg/mL (0-100)
[2020-06-15] MEDS: SACUBITRIL PO SCH ×2 (09:00→18:07)
[2020-06-15] MEDS: VALSARTAN PO SCH ×2 (09:00→18:07)
[2020-06-15 09:04] LABS: ALBUMIN 2.9 g/dL (3.5-5.0); BILIRUBIN,TOTAL 0.8 mg/dL (0.2-1.0); CREATININE 1.8 mg/dL (0.5-1.5); POTASSIUM 3.5 mmol/L (3.5-5.1); TOTAL PROTEIN, SERUM 6.4 g/dL (6.0-8.3)
[2020-06-15] MEDS: CARVEDILOL 25 MG TABLET PO SCH ×2 (10:08→20:34)
[2020-06-15] MEDS: FAMOTIDINE 20MG TAB 20 MG TAB PO SCH (10:09)
[2020-06-15] MEDS: SPIRONOLACTONE 25 MG TAB PO SCH (10:09)
[2020-06-15] MEDS: POTASSIUM CHLORIDE 10 MEQ/TAB.SA PO SCH ×2 (10:09→20:30)
[2020-06-15] MEDS: ENOXAPARIN SODIUM 30 MG/0.3 ML SQ SCH (10:10)
--- NOTE | 2020-06-15 14:00 | NUR ---
SALINE LOCK RT. AC REMOVED, PT/ STATED WAS UNCOMFORTABLE AND HAD A BURNING SENSATION.
--- NOTE | 2020-06-15 18:00 | NUR ---
HAS BEEN SCHEDULED FOR STRESS TEST IN AM. PT. AWARE HE WILL BE NPO OF MIDNIGHT.
--- NOTE | 2020-06-15 22:30 | NUR ---
ronaldo from nuclear medicine is at the bedside and explains potential risks of the lexiscan and the patient refuses the procedure. I spoke with him and explained further, but he still refused and signed the refusal for treatment form and i placed it on the chart.
[2020-06-16 00:55] VITALS: BP 91/61
[2020-06-16] MEDS: FUROSEMIDE 10 MG/ML 2ML VIAL IV SCH (04:14)
[2020-06-16 04:22] VITALS: BP 113/65
[2020-06-16 06:32] LABS: BASOPHILS % (AUTO) 0.4 % (0.0-5.0); EOSINOPHILS % (AUTO) 2.9 % (0.0-8.0); HEMATOCRIT 42.5 % (42-54); LYMPHOCYTES % (AUTO) 26.3 % (21.0-51.0); MEAN CORPUSCULAR HEMOGLOBIN 30.2 pg (27.0-33.0); MEAN CORPUSCULAR HGB CONC 32.7 g/dL (32.0-36.0); MEAN CORPUSCULAR VOLUME 92.4 fL (79-99); MONOCYTES % (AUTO) 9.5 % (3.0-13.0); NEUTROPHILS % (AUTO) 60.6 % (40.0-77.0); PLATELET COUNT (AUTO) 233 K/uL (130-400); RED CELL DISTRIBUTION WIDTH 14.3 % (11.0-15.5); WHITE BLOOD COUNT (AUTO) 7.3 K/uL (4.8-10.8)
[2020-06-16 07:10] LABS: ALBUMIN 3.3 g/dL (3.5-5.0); BILIRUBIN,TOTAL 0.8 mg/dL (0.2-1.0); CREATININE 1.8 mg/dL (0.5-1.5); POTASSIUM 3.1 mmol/L (3.5-5.1); TOTAL PROTEIN, SERUM 7.3 g/dL (6.0-8.3)
[2020-06-16] MEDS ORDERED: REGADENOSON 0.4 MG/5 ML PF SYG IVP SCH (07:30)
[2020-06-16 07:47] VITALS: BP 115/65
[2020-06-16 08:23] VITALS: BP 115/65
[2020-06-16] MEDS: POTASSIUM CHLORIDE 10 MEQ/TAB.SA PO SCH (08:23)
[2020-06-16] MEDS: SPIRONOLACTONE 25 MG TAB PO SCH (08:23)
[2020-06-16] MEDS: FAMOTIDINE 20MG TAB 20 MG TAB PO SCH (08:23)
[2020-06-16] MEDS: CARVEDILOL 25 MG TABLET PO SCH (08:23)
[2020-06-16] MEDS: ENOXAPARIN SODIUM 30 MG/0.3 ML SQ SCH (08:24)
[2020-06-16] MEDS: VALSARTAN PO SCH (09:23)
[2020-06-16] MEDS: SACUBITRIL PO SCH (09:23)
[2020-06-16] MEDS ORDERED: LIDOCAINE HCL-MPF 1% 2ML VIAL IV PRN (09:45)
[2020-06-16] MEDS ORDERED: POTASSIUM CHLORIDE 10MEQ/100ML 100 ML IV PRN (09:45)
--- NOTE | 2020-06-16 11:30 | NUR ---
AMA PT SIGNED AMA FORM TO LEAVE. YULISA VOSS IS AWARE SHE SPOKE TO PT AT BEDSIDE.
== END 2020-06-16 11:25 | disposition left against medical advice (07) | DRG 291 ==
LOC: EDH 07:31 → EDHIP 13:00 → 4CH 19:14 → 3DH 06-13 23:00
PROVIDERS: ADMIT Hospitalist; ATTEND Hospitalist
DX: I13.0 Hypertensive heart and chronic kidney disease with heart failure and stage 1 through stage 4 chronic kidney disease, or unspecified chronic kidney disease (principal); J96.01 Acute respiratory failure with hypoxia; I50.43 Acute on chronic combined systolic (congestive) and diastolic (congestive) heart failure; N17.9 Acute kidney failure, unspecified; I42.0 Dilated cardiomyopathy; Z20.828 Contact with and (suspected) exposure to other viral communicable diseases; E78.00 Pure hypercholesterolemia, unspecified; E78.5 Hyperlipidemia, unspecified; F14.10 Cocaine abuse, uncomplicated; E66.9 Obesity, unspecified; E87.6 Hypokalemia; N18.9 Chronic kidney disease, unspecified; E11.22 Type 2 diabetes mellitus with diabetic chronic kidney disease; Z90.49 Acquired absence of other specified parts of digestive tract; Z91.19 Patient's noncompliance with other medical treatment and regimen
CPT/HCPCS: 36415; 71045; 74176; 80048; 80053; 80305; 81001; 82550; 82948; 83690; 83874; 83880; 84484; 85025; 85610; 85730; 87426; 93005; 93306; 93356; 99291; G0378; J1650; J1940; J2785; U0003

== ENCOUNTER → 2022-08-12 | Outpatient (CLI) | payer OTHER, MEDICARE ==
[~2022-08-12] MED LIST changes: +APIX5TAB PO; -BIMA12.5OS OD; -CARV25TA PO; +CARV6.25 PO; +FURO20TA4 PO; -FURO20TA6 PO; +LISI2.5T13 PO; -PRED20B PO; -SACU1TAB4 PO; -SPIR25TA6 PO
[2022-08-12 12:27] LABS: BASOPHILS % (AUTO) 0.7 % (0.0-5.0); EOSINOPHILS % (AUTO) 2.5 % (0.0-8.0); HEMATOCRIT 42.3 % (42-54); LYMPHOCYTES % (AUTO) 30.9 % (21.0-51.0); MEAN CORPUSCULAR HGB CONC 32.2 g/dL (32.0-36.0); MEAN CORPUSCULAR VOLUME 90.2 fL (79-99); MONOCYTES % (AUTO) 8.2 % (3.0-13.0); NEUTROPHILS % (AUTO) 57.4 % (40.0-77.0); PLATELET COUNT (AUTO) 223 K/uL (130-400); RED BLOOD CELL COUNT(AUTO) 4.69 MIL/uL (4.50-6.20); RED CELL DISTRIBUTION WIDTH 13.2 % (11.0-15.5); WHITE BLOOD COUNT (AUTO) 7.3 K/uL (4.8-10.8)
[2022-08-12 12:38] LABS: ALBUMIN 4.1 g/dL (3.5-5.0); CREATININE 1.6 mg/dL (0.5-1.5); POTASSIUM 4.2 mmol/L (3.5-5.1); TOTAL PROTEIN, SERUM 8.2 g/dL (6.0-8.3)
[2022-08-12 12:58] LABS: B-TYPE NATRIURETIC PEPTIDE 461 pg/mL (0-100)
== END | disposition home or self-care (01) ==
LOC: LAB 08:37
PROVIDERS: ATTEND Internal Medicine Cardiovascular Disease
DX: I50.22 Chronic systolic (congestive) heart failure (principal); I42.0 Dilated cardiomyopathy
CPT/HCPCS: 36415; 80053; 80061; 83880; 85025

== ENCOUNTER 2022-09-04 10:38 | Emergency (ER) | payer OTHER, MEDICARE ==
[~2022-09-04] VITALS: Ht 160 cm; Wt 81.6 kg
[2022-09-04 11:14] LABS: CREATININE 1.8 mg/dL (0.5-1.5); POTASSIUM 4.1 mmol/L (3.5-5.1)
[2022-09-04 11:18] LABS: TOTAL PROTEIN, SERUM 8.5 g/dL (6.0-8.3)
[2022-09-04 11:26] LABS: BASOPHILS % (AUTO) 0.4 % (0.0-5.0); EOSINOPHILS % (AUTO) 0.7 % (0.0-8.0); HEMATOCRIT 44.3 % (42-54); LYMPHOCYTES % (AUTO) 13.4 % (21.0-51.0); MEAN CORPUSCULAR HEMOGLOBIN 29.1 pg (27.0-33.0); MEAN CORPUSCULAR VOLUME 88.4 fL (79-99); MONOCYTES % (AUTO) 7.2 % (3.0-13.0); PLATELET COUNT (AUTO) 307 K/uL (130-400); RED BLOOD CELL COUNT(AUTO) 5.01 MIL/uL (4.50-6.20); RED CELL DISTRIBUTION WIDTH 12.8 % (11.0-15.5); WHITE BLOOD COUNT (AUTO) 11.6 K/uL (4.8-10.8)
[2022-09-04 11:27] LABS: APPEARANCE,URINE CLEAR (CLEAR); BILIRUBIN,URINE NEGATIVE (NEGATIVE); COLOR,URINE LIGHT-YELLOW (YELLOW); GLUCOSE, URINE (UA) NEGATIVE (NEGATIVE); KETONES,URINE NEGATIVE (NEGATIVE); LEUKOCYTE ESTERASE ,URINE NEGATIVE Leu/uL (NEGATIVE); NITRATE,URINE NEGATIVE (NEGATIVE); OCCULT BLOOD,URINE LARGE (NEGATIVE); PROTEIN,URINE NEGATIVE (NEGATIVE); UROBILINOGEN,URINE 0.2 mg/dL (0.2-1.0)
[2022-09-04 11:34] LABS: BACTERIA,URINE RARE /HPF (None Seen); OTHER CASTS, URINE 1 /LPF (None Seen); RBC,URINE 26-50 /HPF (0-1); SQUAMOUS EPITHELIAL CELL,UR RARE /HPF (0-2)
[2022-09-04 11:38] VITALS: BP 156/77
[2022-09-04 12:07] LABS: B-TYPE NATRIURETIC PEPTIDE 428 pg/mL (0-100)
== END 2022-09-04 12:09 | disposition home or self-care (01) ==
LOC: EDH 10:38
DX: R33.9 Retention of urine, unspecified (principal); E78.00 Pure hypercholesterolemia, unspecified; Z79.01 Long term (current) use of anticoagulants
CPT/HCPCS: 36415; 51702; 71045; 74018; 80053; 81001; 83880; 84484; 85025; 93005

== ENCOUNTER → 2023-04-06 | Outpatient (CLI) | payer OTHER, MEDICARE | END | disposition home or self-care (01) | LOC: RAH 09:23 | PROVIDERS: ATTEND Urology | DX: C61 Malignant neoplasm of prostate (principal); N40.0 Benign prostatic hyperplasia without lower urinary tract symptoms; R59.1 Generalized enlarged lymph nodes; N28.1 Cyst of kidney, acquired | CPT/HCPCS: 74176 ==

== ENCOUNTER → 2023-04-18 | Outpatient (CLI) | payer OTHER, MEDICARE | END | disposition home or self-care (01) | LOC: RAH 11:00 | PROVIDERS: ATTEND Urology | DX: C61 Malignant neoplasm of prostate (principal); C79.51 Secondary malignant neoplasm of bone; E11.9 Type 2 diabetes mellitus without complications; I10 Essential (primary) hypertension; Z90.49 Acquired absence of other specified parts of digestive tract | CPT/HCPCS: 78306; A9503 ==

== ENCOUNTER → 2023-04-26 | Outpatient (CLI) | payer OTHER, MEDICARE ==
[~2023-04-26] VITALS: Ht 160 cm; Wt 73.4 kg
[~2023-04-26] MED LIST changes: +BICA50TA7 PO; +CARV12.511 PO; +SACU1TAB PO; +TAMS-1 PO
[2023-04-26 14:13] LABS: BASOPHILS % (AUTO) 0.3 % (0.0-5.0); EOSINOPHILS % (AUTO) 0.6 % (0.0-8.0); HEMATOCRIT 33.3 % (42-54); LYMPHOCYTES % (AUTO) 15.7 % (21.0-51.0); MEAN CORPUSCULAR HEMOGLOBIN 28.3 pg (27.0-33.0); MEAN CORPUSCULAR HGB CONC 32.4 g/dL (32.0-36.0); MEAN CORPUSCULAR VOLUME 87.4 fL (79-99); MONOCYTES % (AUTO) 7.3 % (3.0-13.0); NEUTROPHILS % (AUTO) 75.1 % (40.0-77.0); PLATELET COUNT (AUTO) 448 K/uL (130-400); RED BLOOD CELL COUNT(AUTO) 3.81 MIL/uL (4.50-6.20)
[2023-04-26 14:23] LABS: INR 1.21 (0.85-1.15)
[2023-04-26 14:24] LABS: PARTIAL THROMBOPLASTIN TIME 32.4 SEC (26.3-35.5)
[2023-04-26 14:26] VITALS: BP 109/88
[2023-04-26 15:12] LABS: CREATININE 6.1 mg/dL (0.5-1.5); POTASSIUM 5.1 mmol/L (3.5-5.1)
== END | disposition home or self-care (01) ==
LOC: DAH 10:00 → EDSTATUS 15:00
PROVIDERS: ATTEND Urology
DX: Z01.818 Encounter for other preprocedural examination (principal); N13.1 Hydronephrosis with ureteral stricture, not elsewhere classified; Z79.01 Long term (current) use of anticoagulants
CPT/HCPCS: 36415; 80048; 85025; 85610; 85730

== ENCOUNTER 2023-06-05 23:11 | Inpatient (IN) | payer OTHER, MEDICARE ==
[~2023-06-05] VITALS: Ht 162.6 cm; Wt 78.6 kg
[~2023-06-05 23:11] MED LIST changes: -APIX5TAB PO; -CARV6.25 PO; -FURO20TA4 PO; -LISI2.5T13 PO; -TRAM50TA4 PO
[2023-06-06 01:17] LABS: BASOPHILS % (AUTO) 0.4 % (0.0-5.0); EOSINOPHILS % (AUTO) 0.9 % (0.0-8.0); HEMATOCRIT 32.1 % (42-54); LYMPHOCYTES % (AUTO) 22.7 % (21.0-51.0); MEAN CORPUSCULAR HEMOGLOBIN 28.2 pg (27.0-33.0); MEAN CORPUSCULAR HGB CONC 31.5 g/dL (32.0-36.0); MEAN CORPUSCULAR VOLUME 89.7 fL (79-99); MONOCYTES % (AUTO) 8.8 % (3.0-13.0); NEUTROPHILS % (AUTO) 66.4 % (40.0-77.0); PLATELET COUNT (AUTO) 382 K/uL (130-400); RED BLOOD CELL COUNT(AUTO) 3.58 MIL/uL (4.50-6.20); RED CELL DISTRIBUTION WIDTH 16.3 % (11.0-15.5); WHITE BLOOD COUNT (AUTO) 9.2 K/uL (4.8-10.8)
[2023-06-06 01:21] LABS: APPEARANCE,URINE TURBID (CLEAR); BILIRUBIN,URINE NEGATIVE (NEGATIVE); CARBON DIOXIDE 22 mmol/L (21-32); CHLORIDE 99 mmol/L (101-111); COLOR,URINE ORANGE (YELLOW); CREATININE 3.1 mg/dL (0.5-1.5); GLOMERULAR FILTR. RATE CALC 21 mL/min (>90); GLUCOSE, URINE (UA) NEGATIVE (NEGATIVE); GLUCOSE,RANDOM 121 mg/dL (70-105); KETONES,URINE NEGATIVE (NEGATIVE); LEUKOCYTE ESTERASE ,URINE 500 Leu/uL (NEGATIVE); NITRATE,URINE NEGATIVE (NEGATIVE); OCCULT BLOOD,URINE SMALL (NEGATIVE); POTASSIUM 3.8 mmol/L (3.5-5.1); PROTEIN,URINE 600 mg/dL (NEGATIVE); SODIUM SERUM 136 mmol/L (136-145); UREA NITROGEN, BLOOD 35 mg/dL (7-18); UROBILINOGEN,URINE 0.2 mg/dL (0.2-1.0)
[2023-06-06 01:26] LABS: ALANINE AMINOTRANSFERASE 64 U/L (12-78); ASPARTATE AMINOTRANSFERASE 142 U/L (10-37); TOTAL PROTEIN, SERUM 7.5 g/dL (6.0-8.3)
[2023-06-06 01:28] LABS: BACTERIA,URINE Many /HPF (None Seen); SQUAMOUS EPITHELIAL CELL,UR Few /HPF (0-2); WBC,URINE TNTC /HPF (0-1)
[2023-06-06] MEDS ORDERED: CEFTRIAXONE 1G VIAL IVPB ONE (03:00)
[2023-06-06] MEDS ORDERED: 0.9%NACL 1000ML 2,500 ML IV ONE (03:00)
[2023-06-06] MEDS ORDERED: LABETALOL 20MG SYG IV PRN (05:30)
[2023-06-06] MEDS ORDERED: HYDRALAZINE 20MG/ML VIAL IV PRN (05:30)
[2023-06-06] MEDS ORDERED: ONDANSETRON 4MG INJ IVP PRN (05:30)
[2023-06-06] MEDS ORDERED: RENAL DOSE IV PRN (05:30)
[2023-06-06] MEDS ORDERED: ACETAMINOPHEN 650 MG SUPPOSITORY RC PRN (05:30)
[2023-06-06] MEDS ORDERED: CEFEPIME HCL 1 GM VIAL IV SCH (06:00)
[2023-06-06] MEDS: 0.9%NACL 1000ML 1,000 ML IV SCH (06:49)
[2023-06-06] MEDS: INSULIN HUMULIN R 100 UNIT/ML 3ML SQ SCH ×4 (07:30→21:00)
[2023-06-06] MEDS: ENOXAPARIN SODIUM 30 MG/0.3 ML SQ SCH (09:38)
[2023-06-06] MEDS ORDERED: COMPOUND IV MISC 1 EACH IVSOLN MISC PRN (17:00)
[2023-06-06] MEDS ORDERED: MEROPENEM 1 GM in 0.9%NACL 100ML 100 ML IV SCH (17:00)
[2023-06-06] MEDS: MEROPENEM 500 MG/100ML CRCL 10-25 IV SCH ×2 (17:42)
[2023-06-06] MEDS: SACUBITRIL/VALSARTAN 1 EACH TABLET PO SCH (22:55)
[2023-06-06] MEDS: CARVEDILOL 12.5 MG TABLET PO SCH (22:58)
[2023-06-07] MEDS: 0.9%NACL 1000ML 1,000 ML IV SCH (03:23)
[2023-06-07] MEDS: MEROPENEM 500 MG/100ML CRCL 10-25 IV SCH ×4 (05:43→17:08)
[2023-06-07 06:24] LABS: HEMATOCRIT 30.8 % (42-54); MEAN CORPUSCULAR HEMOGLOBIN 28.2 pg (27.0-33.0); MEAN CORPUSCULAR HGB CONC 31.2 g/dL (32.0-36.0); MEAN CORPUSCULAR VOLUME 90.6 fL (79-99); RED BLOOD CELL COUNT(AUTO) 3.4 MIL/uL (4.50-6.20); RED CELL DISTRIBUTION WIDTH 16.7 % (11.0-15.5); WHITE BLOOD COUNT (AUTO) 8.5 K/uL (4.8-10.8)
[2023-06-07 06:50] LABS: CARBON DIOXIDE 21 mmol/L (21-32); CHLORIDE 102 mmol/L (101-111); CREATININE 2.9 mg/dL (0.5-1.5); GLOMERULAR FILTR. RATE CALC 22 mL/min (>90); GLUCOSE,RANDOM 103 mg/dL (70-105); PHOSPHORUS 4.1 mg/dL (2.5-4.9); POTASSIUM 3.4 mmol/L (3.5-5.1); SODIUM SERUM 137 mmol/L (136-145); THYROID STIMULATING HORMONE 8.85 uIU/mL (0.36-3.74); UREA NITROGEN, BLOOD 39 mg/dL (7-18)
[2023-06-07] MEDS: INSULIN HUMULIN R 100 UNIT/ML 3ML SQ SCH ×4 (07:30→21:00)
[2023-06-07] MEDS: SACUBITRIL/VALSARTAN 1 EACH TABLET PO SCH (09:00)
[2023-06-07] MEDS: ENOXAPARIN SODIUM 30 MG/0.3 ML SQ SCH (09:08)
[2023-06-07] MEDS: CARVEDILOL 12.5 MG TABLET PO SCH (09:08)
[2023-06-07] MEDS: TAMSULOSIN HCL 0.4 MG CAP.ER.24H PO SCH (09:09)
[2023-06-07] MEDS ORDERED: KCL 20 MEQ ERTAB PO ONE ×2 (09:30→21:00)
[2023-06-07] MEDS ORDERED: MAGNESIUM OXIDE 400 MG TABLET PO ONE (09:30)
[2023-06-07] MEDS ORDERED: 0.9% NACL 500ML IV.SOLN 500 ML IV SCH (12:00)
[2023-06-07] MEDS ORDERED: MIDODRINE HCL 5 MG TABLET ONE (13:03)
[2023-06-07] MEDS: MIDODRINE HCL 5 MG TABLET PO SCH ×2 (13:05→21:44)
[2023-06-07] MEDS ORDERED: LACTATED RINGERS 1000ML IV STA (15:06)
[2023-06-07] MEDS: LACTATED RINGERS 1000ML 1,000 ML IV SCH (15:35)
[2023-06-07] MEDS ORDERED: MEROPENEM 500 MG VIAL ONE (17:07)
[2023-06-07] MEDS: BICALUTAMIDE 50 MG TABLET PO SCH (21:44)
[2023-06-07 22:30] VITALS: BP 102/67; PULSE 84; RESP 20
[2023-06-08] VITALS (8 sets, daily range): BP systolic 88–109; BP diastolic 55–67; PULSE 74–80; RESP 16–20; O2SAT 98–100
[2023-06-08] MEDS: LACTATED RINGERS 1000ML 1,000 ML IV SCH ×2 (01:30→11:07)
[2023-06-08] MEDS: MEROPENEM 500 MG/100ML CRCL 10-25 IV SCH ×4 (05:04→17:29)
[2023-06-08 05:44] LABS: T4 (THYROXINE) 7.2 ug/dL (4.7-13.3)
[2023-06-08] MEDS: INSULIN HUMULIN R 100 UNIT/ML 3ML SQ SCH ×4 (05:54→21:00)
[2023-06-08] MEDS: TAMSULOSIN HCL 0.4 MG CAP.ER.24H PO SCH (08:51)
[2023-06-08] MEDS: MIDODRINE HCL 5 MG TABLET PO SCH ×4 (08:52→23:06)
[2023-06-08] MEDS: ENOXAPARIN SODIUM 30 MG/0.3 ML SQ SCH (08:53)
[2023-06-08] MEDS: BICALUTAMIDE 50 MG TABLET PO SCH ×2 (11:08→23:06)
[2023-06-08 17:01] LABS: CARBON DIOXIDE 15 mmol/L (21-32); CHLORIDE 105 mmol/L (101-111); CREATININE 3.3 mg/dL (0.5-1.5); GLOMERULAR FILTR. RATE CALC 19 mL/min (>90); GLUCOSE,RANDOM 92 mg/dL (70-105); SODIUM SERUM 139 mmol/L (136-145); UREA NITROGEN, BLOOD 51 mg/dL (7-18)
[2023-06-09] VITALS (16 sets, daily range): BP systolic 100–112; BP diastolic 55–68; PULSE 74–94; RESP 16–22; O2SAT 99–100
[2023-06-09] MEDS: MEROPENEM 500 MG/100ML CRCL 10-25 IV SCH ×4 (05:41→15:52)
[2023-06-09] MEDS: LEVOTHYROXINE 25 MCG TABLET PO SCH (05:41)
[2023-06-09 05:50] LABS: BASOPHILS % (AUTO) 0.5 % (0.0-5.0); EOSINOPHILS % (AUTO) 0.9 % (0.0-8.0); HEMATOCRIT 30.5 % (42-54); LYMPHOCYTES % (AUTO) 19.6 % (21.0-51.0); MEAN CORPUSCULAR HGB CONC 30.2 g/dL (32.0-36.0); MONOCYTES % (AUTO) 7.4 % (3.0-13.0); NEUTROPHILS % (AUTO) 70.3 % (40.0-77.0); PLATELET COUNT (AUTO) 295 K/uL (130-400); RED BLOOD CELL COUNT(AUTO) 3.28 MIL/uL (4.50-6.20); RED CELL DISTRIBUTION WIDTH 17.3 % (11.0-15.5); WHITE BLOOD COUNT (AUTO) 9.8 K/uL (4.8-10.8)
[2023-06-09 06:05] LABS: ALANINE AMINOTRANSFERASE 164 U/L (12-78); ALBUMIN 2.2 g/dL (3.5-5.0); ASPARTATE AMINOTRANSFERASE 571 U/L (10-37); CARBON DIOXIDE 15 mmol/L (21-32); CHLORIDE 102 mmol/L (101-111); CREATININE 3.2 mg/dL (0.5-1.5); GLOMERULAR FILTR. RATE CALC 20 mL/min (>90); GLUCOSE,RANDOM 79 mg/dL (70-105); POTASSIUM 4.6 mmol/L (3.5-5.1); SODIUM SERUM 135 mmol/L (136-145); TOTAL PROTEIN, SERUM 6.1 g/dL (6.0-8.3); UREA NITROGEN, BLOOD 58 mg/dL (7-18)
[2023-06-09] MEDS: INSULIN HUMULIN R 100 UNIT/ML 3ML SQ SCH ×3 (06:14→20:20)
[2023-06-09 07:41] LABS: INR 1.43 (0.85-1.15); PROTHROMBIN TIME 16.2 SEC (9.6-11.6)
[2023-06-09 07:42] LABS: PARTIAL THROMBOPLASTIN TIME 33.9 SEC (26.3-35.5)
[2023-06-09] MEDS: MIDODRINE HCL 5 MG TABLET PO SCH ×5 (09:00→20:10)
[2023-06-09] MEDS ORDERED: MAGNESIUM 2GM PREMIX 50ML 50 ML IV SCH ×3 (09:00→18:30)
[2023-06-09] MEDS: BICALUTAMIDE 50 MG TABLET PO SCH ×3 (09:00→20:11)
[2023-06-09] MEDS: ENOXAPARIN SODIUM 30 MG/0.3 ML SQ SCH (09:00)
[2023-06-09] MEDS: LACTATED RINGERS 1000ML 1,000 ML IV SCH (11:56)
[2023-06-09] MEDS ORDERED: IODIXANOL 320 MG/ML 100 ML VIAL ONE (14:11)
[2023-06-09] MEDS ORDERED: LIDOCAINE HCL 1% MDV 50ML VIAL ONE (14:11)
[2023-06-09] MEDS: TAMSULOSIN HCL 0.4 MG CAP.ER.24H PO SCH (15:52)
[2023-06-10 03:10] VITALS: BP 103/57; PULSE 79; RESP 18
[2023-06-10] MEDS: MEROPENEM 500 MG/100ML CRCL 10-25 IV SCH ×2 (04:47)
[2023-06-10] MEDS: LEVOTHYROXINE 25 MCG TABLET PO SCH (04:47)
[2023-06-10 05:56] LABS: BASOPHILS % (AUTO) 0.4 % (0.0-5.0); EOSINOPHILS % (AUTO) 1.1 % (0.0-8.0); HEMATOCRIT 28.8 % (42-54); LYMPHOCYTES % (AUTO) 19.3 % (21.0-51.0); MEAN CORPUSCULAR HEMOGLOBIN 28.8 pg (27.0-33.0); MEAN CORPUSCULAR HGB CONC 30.6 g/dL (32.0-36.0); MEAN CORPUSCULAR VOLUME 94.1 fL (79-99); MONOCYTES % (AUTO) 9.1 % (3.0-13.0); NUCLEATED RED BLOOD CELLS 0.2 % (0.0-0.19); PLATELET COUNT (AUTO) 240 K/uL (130-400); RED BLOOD CELL COUNT(AUTO) 3.06 MIL/uL (4.50-6.20); RED CELL DISTRIBUTION WIDTH 17.4 % (11.0-15.5)
[2023-06-10 06:37] LABS: ALANINE AMINOTRANSFERASE 127 U/L (12-78); ALBUMIN 2.3 g/dL (3.5-5.0); ASPARTATE AMINOTRANSFERASE 243 U/L (10-37); CARBON DIOXIDE 15 mmol/L (21-32); CHLORIDE 102 mmol/L (101-111); CREATININE 2.9 mg/dL (0.5-1.5); GLOMERULAR FILTR. RATE CALC 22 mL/min (>90); GLUCOSE,RANDOM 90 mg/dL (70-105); POTASSIUM 4.3 mmol/L (3.5-5.1); SODIUM SERUM 135 mmol/L (136-145); TOTAL PROTEIN, SERUM 6.2 g/dL (6.0-8.3); UREA NITROGEN, BLOOD 56 mg/dL (7-18)
[2023-06-10] MEDS: INSULIN HUMULIN R 100 UNIT/ML 3ML SQ SCH ×3 (07:30→16:30)
[2023-06-10 08:00] VITALS: BP 110/64; PULSE 76; RESP 20
[2023-06-10] MEDS: TAMSULOSIN HCL 0.4 MG CAP.ER.24H PO SCH (09:02)
[2023-06-10] MEDS: ENOXAPARIN SODIUM 30 MG/0.3 ML SQ SCH (09:02)
[2023-06-10] MEDS: MIDODRINE HCL 5 MG TABLET PO SCH ×3 (09:02→14:26)
[2023-06-10] MEDS: BICALUTAMIDE 50 MG TABLET PO SCH (09:02)
[2023-06-10] MEDS ORDERED: LEVOFLOXACIN 750 MG/D5W 150 ML 150 ML IV ONE (09:30)
[2023-06-10 12:00] VITALS: BP_SYST 109; BP_SYST 113; BP_DIAS 70; BP_DIAS 87; PULSE 76; PULSE 92; RESP 20
[2023-06-10] MEDS ORDERED: LEVO25TA9 PO (15:29)
[2023-06-10] MEDS ORDERED: Midodrine Hcl PO (15:29)
[2023-06-12] MEDS ORDERED: LEVOFLOXACIN 500 MG/D5W 100 ML 100 ML IV SCH (09:30)
== END 2023-06-10 16:45 | disposition home or self-care (01) | DRG 871 ==
LOC: EDH 23:11 → EDHIP 06-06 05:22 → OBSVTOIN 06-06 05:22 → 3BH 06-07 22:30
PROVIDERS: ADMIT Internal Medicine Critical Care Medicine; ATTEND Internal Medicine Critical Care Medicine
PROC: 0T25X0Z Change Drainage Device in Kidney, External Approach (ICD-10-PCS; principal; 2023-06-09)
DX: A41.50 Gram-negative sepsis, unspecified (principal); I50.23 Acute on chronic systolic (congestive) heart failure; C79.51 Secondary malignant neoplasm of bone; N17.9 Acute kidney failure, unspecified; I13.0 Hypertensive heart and chronic kidney disease with heart failure and stage 1 through stage 4 chronic kidney disease, or unspecified chronic kidney disease; N13.6 Pyonephrosis; I48.92 Unspecified atrial flutter; I42.0 Dilated cardiomyopathy; Z20.822 Contact with and (suspected) exposure to COVID-19; N18.9 Chronic kidney disease, unspecified; E11.22 Type 2 diabetes mellitus with diabetic chronic kidney disease; I27.20 Pulmonary hypertension, unspecified; C61 Malignant neoplasm of prostate; I25.10 Atherosclerotic heart disease of native coronary artery without angina pectoris; E03.9 Hypothyroidism, unspecified; E78.00 Pure hypercholesterolemia, unspecified; I48.91 Unspecified atrial fibrillation; I95.1 Orthostatic hypotension; Z66 Do not resuscitate; Z82.49 Family history of ischemic heart disease and other diseases of the circulatory system; Z83.3 Family history of diabetes mellitus; Z85.46 Personal history of malignant neoplasm of prostate; Z86.14 Personal history of Methicillin resistant Staphylococcus aureus infection; Z87.01 Personal history of pneumonia (recurrent)
CPT/HCPCS: 36415; 50432; 50435; 71045; 74176; 80048; 80053; 81001; 82948; 83605; 83735; 84100; 84436; 84443; 84481; 84484; 85025; 85027; 85610; 85730; 87040; 87077; 87088; 87186; 87635; 87804; 93005; C1729; C1769; C1894; C9803; G0378; J0692; J0696; J1644; J1650; J1956; J2185; J3475; J3490; J7120; Q9967